=== PATIENT | male | born 1985 | race Caucasian/White ===

== ENCOUNTER → 2020-09-25 | Outpatient (CLI) | payer BC ==
[~2020-09-25] MED LIST: BACTROBAN NASAL1 G1; CLEOCIN HCL300 MG PO; GLUCOPHAGE500 MG PO; IBUPROFEN600 MG PO
== END ==
LOC: KOH-I 08:43
DX: M25.561 Pain in right knee (principal); R93.6 Abnormal findings on diagnostic imaging of limbs
CPT/HCPCS: 73564

== ENCOUNTER → 2020-10-05 | Outpatient (CLI) | payer BC | LOC: KOH-I 08:15 | DX: M25.561 Pain in right knee (principal); R60.0 Localized edema; M89.9 Disorder of bone, unspecified; M67.51 Plica syndrome, right knee; R93.6 Abnormal findings on diagnostic imaging of limbs | CPT/HCPCS: 73721 ==